=== PATIENT | female | born 1930 | race Caucasian/White ===

== ENCOUNTER 2018-08-06 12:00 | Inpatient (IN) | payer MEDICARE ==
[2018-08-06] VITALS (10 sets, daily range): BP systolic 117–151; BP diastolic 35–90; Ht 162.6 cm; Wt 56.8 kg
[~2018-08-06] VITALS: Ht 162.6 cm; Wt 56.8 kg
--- NOTE | ~2018-08-06 | MORECARE ---
CASE MANAGEMENT DISCHARGE SUMMARY PATIENT: CHATA HOUSTON UNIT: [id number] ADM DATE: 08/06/18 AGE: 88 : [birth year] SEX: F ROOM/BED: D.2234 AUTHOR: TODD,DOC PHYSICIAN: REFERRING PHYSICIAN: NORBERT SORTO MD DATE OF SERVICE: 08/11/18 Discharge Plan Patient Name: CHATA HOUSTON Facility: [facility]:[place] : 1930 Planned Disposition: Anticipated Discharge Date: Discharge Date: 08/10/2018 Expected LOS: 0 Initial Reviewer: [email or web address] Initial Review Date: 08/06/2018 Generated: 08/11/18 1:43 pm Comments DCP- Discharge Planning Updated by [email or web address]: Albina Muller on 08/10/18 11:[address] Received orders for discharge. She states her and daughter are picking her up. States her family are coming from [place], so it will be 4-4:30 before they get here. Declines need for DME or home health services. Discharging home today. DCP- Discharge Planning Updated by [email or web address]: Sandy Kelley on 08/06/18 12:[address] CM met with patient to assess complete initial dc planning assessment. CM educated the patient on the CM role and she gave consent to complete assessment. Patient reports she lives at home with a her . She states she does not want her children to know she is hospitalized. She reports she is independent in her care at home. Reports that she hikes 2 miles/day and lifts weights daily. She plans to return home at discharge. She denied need for home health or other services at discharge. Patient does have a RW, but currently does not use it. CM will continue to follow and will assist as needed with dc plans/needs. Sandy Kelley RN CM DCPIA - Discharge Planning Initial Assessment Updated by [email or web address]: Sandy Kelley on 08/06/18 1:32 pm * Is the patient Alert and Oriented? Yes * PCP Roselyn Tobias * Pharmacy [facility] * Preadmission Environment Home with Family * ADLs Independent * Equipment Rolling Walker * Other Equipment NA * List name and contact numbers for known caregivers / representatives who currently or will assist patient after discharge: Kael Houston #[phone] ([facility]) * Verbal permission to speak to the caregivers and representatives has been obtained from the patient. Yes * Community resources currently utilized None * Please name any agencies selected above. NA * Additional services required to return to the preadmission environment? No * Can the patient safely return to the preadmission environment? Yes * Has this patient been hospitalized within the prior 30 days at any hospital? No Coverage Notice Reviewer: [email or web address] Shahida Muller Notice Issued Date-Time: 08/10/2018 12:56 Notice Type: IM Discharge Notice Notice Delivered To: Patient Relationship to Patient: Self Horse Riding Coach Or Instructor Name: Delivery Method: HAND - Hand Delivered Kaylin Days: Prior Verbal Notification: Recipient Understood Notice: Yes Recipient Signature: Yes Med Rec Note Co-signed by Attending: Coverage Notice Comment: IMM explained, signed, copy given, original placed in MR Last DP export: 08/10/18 12:04 p Patient Name: CHATA HOUSOTN Page [id number] at 1243 All edits/amendments must be made on the electronic document DICTATION DATE: 08/11/18 1243 ASBESTOS ABATEMENT WORKER: MARQUEZ 08/11/18 1243 RPT#: [id number] DC DATE:08/10/18 STATUS: DIS IN [facility] [address] [place] [address] END OF REPORT
--- NOTE | ~2018-08-06 | MORECARE ---
CASE MANAGEMENT DISCHARGE SUMMARY PATIENT: CHATA HOUSTON UNIT: [id number] ADM DATE: 08/06/18 AGE: 88 : [birth year] SEX: F ROOM/BED: D.2234 AUTHOR: TODD,DOC PHYSICIAN: REFERRING PHYSICIAN: NORBERT SORTO MD DATE OF SERVICE: 08/10/18 Discharge Plan Patient Name: CHATA HOUSTON Facility: [facility]:[place] : 1930 Planned Disposition: Anticipated Discharge Date: Discharge Date: Expected LOS: Initial Reviewer: [email or web address] Initial Review Date: 08/06/2018 Generated: 08/10/18 2:04 pm Comments DCP- Discharge Planning Updated by [email or web address]: Albina Muller on 08/10/18 11:[address] Received orders for discharge. She states her and daughter are picking her up. States her family are coming from [place], so it will be 4-4:30 before they get here. Declines need for DME or home health services. Discharging home today. DCP- Discharge Planning Updated by [email or web address]: Sandy Kelley on 08/06/18 12:[address] CM met with patient to assess complete initial dc planning assessment. CM educated the patient on the CM role and she gave consent to complete assessment. Patient reports she lives at home with a her . She states she does not want her children to know she is hospitalized. She reports she is independent in her care at home. Reports that she hikes 2 miles/day and lifts weights daily. She plans to return home at discharge. She denied need for home health or other services at discharge. Patient does have a RW, but currently does not use it. CM will continue to follow and will assist as needed with dc plans/needs. Sandy Kelley RN CM DCPIA - Discharge Planning Initial Assessment Updated by [email or web address]: Sandy Kelley on 08/06/18 1:32 pm * Is the patient Alert and Oriented? Yes * PCP Roselyn Tobias * [facility] * Preadmission Environment Home with Family * ADLs Independent * Equipment Rolling Walker * Other Equipment NA * List name and contact numbers for known caregivers / representatives who currently or will assist patient after discharge: Kael Houston #[phone] ([facility]) * Verbal permission to speak to the caregivers and representatives has been obtained from the patient. Yes * Community resources currently utilized None * Please name any agencies selected above. NA * Additional services required to return to the preadmission environment? No * Can the patient safely return to the preadmission environment? Yes * Has this patient been hospitalized within the prior 30 days at any hospital? No Coverage Notice Reviewer: [email or web address] Shahida Muller Notice Issued Date-Time: 08/10/2018 12:56 Notice Type: IM Discharge Notice Notice Delivered To: Patient Relationship to Patient: Self Manager Meat Name: Delivery Method: HAND - Hand Delivered Kaylin Days: Prior Verbal Notification: Recipient Understood Notice: Yes Recipient Signature: Yes Med Rec Note Co-signed by Attending: Coverage Notice Comment: IMM explained, signed, copy given, original placed in MR Last DP export: 08/06/18 12:35 Patient Name: CHATA HOUSTON Page [id number] at 1304 All edits/amendments must be made on the electronic document DICTATION DATE: 08/10/18 1304 IT COORDINATOR: MARQUEZ 08/10/18 1304 RPT#: [id number] DC DATE: STATUS: ADM IN [facility] [address] [place] [address] END OF REPORT
--- NOTE | ~2018-08-06 | MORECARE ---
CASE MANAGEMENT DISCHARGE SUMMARY PATIENT: CHATA HOUSTON UNIT: [id number] ADM DATE: 08/06/18 AGE: 88 : [birth year] SEX: M ROOM/BED: D.2304 AUTHOR: TODD,DOC PHYSICIAN: REFERRING PHYSICIAN: NORBERT SORTO MD DATE OF SERVICE: 08/06/18 Discharge Plan Patient Name: CHATA HOUSTON Facility: [facility]:[place] : 1930 Planned Disposition: Anticipated Discharge Date: Discharge Date: Expected LOS: Initial Reviewer: [email or web address] Initial Review Date: 08/06/2018 Generated: 08/06/18 2:35 pm Comments DCP- Discharge Planning Updated by [email or web address]: Sandy Kelley on 08/06/18 12:[address] CM met with patient to assess complete initial dc planning assessment. CM educated the patient on the CM role and she gave consent to complete assessment. Patient reports she lives at home with a her . She states she does not want her children to know she is hospitalized. She reports she is independent in her care at home. Reports that she hikes 2 miles/day and lifts weights daily. She plans to return home at discharge. She denied need for home health or other services at discharge. Patient does have a RW, but currently does not use it. CM will continue to follow and will assist as needed with dc plans/needs. Sandy Kelely RN CM DCPIA - Discharge Planning Initial Assessment Updated by [email or web address]: Sandy Kelley on 08/06/18 1:32 pm * Is the patient Alert and Oriented? Yes * PCP Roselyn Tobias * [facility]acy [facility] * Preadmission Environment Home with Family * ADLs Independent * Equipment Rolling Walker * Other Equipment NA * List name and contact numbers for known caregivers / representatives who currently or will assist patient after discharge: Kael Houston #[phone] ([facility]) * Verbal permission to speak to the caregivers and representatives has been obtained from the patient. Yes * Community resources currently utilized None * Please name any agencies selected above. NA * Additional services required to return to the preadmission environment? No * Can the patient safely return to the preadmission environment? Yes * Has this patient been hospitalized within the prior 30 days at any hospital? No Last DP export: 08/06/18 12:26 Patient Name: CHATA HOUSTON Page [id number] at 1335 All edits/amendments must be made on the electronic document DICTATION DATE: 08/06/181334 WATER SOFTENER SERVICER: MARQUEZ 08/06/185 RPT#: [id number] DC DATE: STATUS: ADM IN [facility] [address] [place] [address] END OF REPORT
--- NOTE | ~2018-08-06 | MORECARE ---
CASE MANAGEMENT DISCHARGE SUMMARY PATIENT: CHATA COUGHLIN UNIT: [id number] ADM DATE: 08/06/18 AGE: 88 : [birth year] SEX: M ROOM/BED: D.2304 AUTHOR: JAYLYN BROOSK PHYSICIAN: REFERRING PHYSICIAN: NORBERT SORTO MD DATE OF SERVICE: 08/06/18 Discharge Plan Patient Name: CHATA COUGHLIN Facility: [facility]:[place] : 1930 Planned Disposition: Anticipated Discharge Date: Discharge Date: Expected LOS: Initial Reviewer: [email or web address] Initial Review Date: 08/06/2018 Generated: 08/06/18 2:26 pm Patient Name: CHATA COUGHLIN Page [id number] at 1326 All edits/amendments must be made on the electronic document DICTATION DATE: 08/06/18 1325 BIT TRIPOLER: MARQUEZ 08/06/18 1325 RPT#: [id number] DC DATE: STATUS: ADM IN [facility] [address] [place] [address] END OF REPORT
[2018-08-06] MEDS ORDERED: PLAVIX75 MG (14:39)
[2018-08-06] MEDS ORDERED: BAYER CHEWABLE81 MG PO (14:40)
[2018-08-06] MEDS ORDERED: LOVASTATIN20 MG PO (14:41)
[2018-08-06] MEDS ORDERED: TIMOPTIC 0.5 % O5 ML (14:43)
[2018-08-06 15:57] LABS: HEMATOCRIT 25.2 % (42.0-54.0); HEMOGLOBIN 8.4 g/dL (13.5-17.5)
[2018-08-07] VITALS (24 sets, daily range): BP systolic 111–151; BP diastolic 48–80
[2018-08-07 04:00] LABS: ALBUMIN 2.5 g/dL (3.4-5.0); ALKALINE PHOSPHATASE 55 U/L (46-116); ALT (SGPT) 12 U/L (10-68); BILIRUBIN - TOTAL 0.67 mg/dL (0.2-1.3); CALC OSMOLALITY 278 mosm/kg (275-300); CALCIUM 7.9 mg/dL (8.5-10.1); CARBON DIOXIDE 22.8 mmol/L (21.0-32.0); CHLORIDE - SERUM 106 mmol/L (98-107); CREATININE - SERUM 0.7 mg/dL (0.6-1.3); GLUCOSE 84 mg/dL (74-106); POTASSIUM - SERUM 4.2 mmol/L (3.5-5.1); PROTEIN - SERUM 4.8 g/dL (6.4-8.2); SODIUM 136 mmol/L (136-145); UREA NITROGEN 36 mg/dL (7-18); eGFR NON AFRICAN AMERICAN > 90 mL/min (90-120)
[2018-08-07 04:10] LABS: BASOPHILS 0.4 % (0-2); EOSINOPHILS 1.2 % (0-7); IMMATURE GRANULOCYTES 0.3 % (0-5); LYMPHOCYTES 16.4 % (15-50); MCH 29.5 pg (26.0-34.0); MCV 86.7 fL (80.0-100.0); MEAN PLATELET VOLUME 10.3 fL (7.4-10.4); MONOCYTES 9.2 % (2-11); NEUTROPHILS 72.5 % (40-80); PLATELET COUNT 111 10x3/uL (130-400); RBC 3.53 10x6/uL (4.20-6.10); RDW 15.5 % (11.5-14.5); WBC 7.7 10x3/uL (4.8-10.8)
[2018-08-07 04:12] LABS: HEMATOCRIT 30.6 % (42.0-54.0); HEMOGLOBIN 10.4 g/dL (13.5-17.5)
[2018-08-07 09:39] LABS: HEMATOCRIT 30.8 % (36.0-48.0); HEMOGLOBIN 10.4 g/dL (12-16)
[2018-08-07 13:59] LABS: HEMATOCRIT 29.8 % (36.0-48.0); HEMOGLOBIN 10.2 g/dL (12-16)
[2018-08-07 19:24] LABS: HEMATOCRIT 29.9 % (36.0-48.0); HEMOGLOBIN 10.3 g/dL (12-16)
[2018-08-08] VITALS (18 sets, daily range): BP systolic 126–157; BP diastolic 49–82
[2018-08-08 04:31] LABS: BASOPHILS 0.4 % (0-2); EOSINOPHILS 3.6 % (0-7); HEMATOCRIT 28.5 % (36.0-48.0); IMMATURE GRANULOCYTES 0.2 % (0-5); LYMPHOCYTES 16.1 % (15-50); MCH 30.6 pg (26.0-34.0); MCHC 35.1 g/dL (31.0-37.0); MCV 87.2 fL (80.0-100.0); MEAN PLATELET VOLUME 9.8 fL (7.4-10.4); MONOCYTES 10.7 % (2-11); PLATELET COUNT 107 10x3/uL (130-400); RBC 3.27 10x6/uL (4.00-5.40); RDW 15.6 % (11.5-14.5); WBC 5.4 10x3/uL (4.8-10.8)
[2018-08-08 04:51] LABS: ALBUMIN 2.6 g/dL (3.4-5.0); ALKALINE PHOSPHATASE 54 U/L (46-116); ALT (SGPT) 11 U/L (10-68); BILIRUBIN - TOTAL 0.58 mg/dL (0.2-1.3); CALC OSMOLALITY 276 mosm/kg (275-300); CALCIUM 7.8 mg/dL (8.5-10.1); CARBON DIOXIDE 17.7 mmol/L (21.0-32.0); CHLORIDE - SERUM 105 mmol/L (98-107); CREATININE - SERUM 0.7 mg/dL (0.6-1.3); PROTEIN - SERUM 4.9 g/dL (6.4-8.2); SODIUM 137 mmol/L (136-145); UREA NITROGEN 27 mg/dL (7-18); eGFR NON AFRICAN AMERICAN 83 mL/min (90-120)
[2018-08-08 04:52] LABS: GLUCOSE 65 mg/dL (74-106)
[2018-08-08 13:54] LABS: HEMATOCRIT 29.9 % (36.0-48.0); HEMOGLOBIN 10.4 g/dL (12-16)
[2018-08-08 21:45] LABS: HEMATOCRIT 28.9 % (36.0-48.0); HEMOGLOBIN 9.8 g/dL (12-16)
[2018-08-09 05:01] VITALS: BP 133/46
[2018-08-09 05:22] LABS: HEMATOCRIT 28.7 % (36.0-48.0); HEMOGLOBIN 9.9 g/dL (12-16)
[2018-08-09 12:17] VITALS: BP 107/61
[2018-08-09 16:00] VITALS: BP 152/52
[2018-08-09 21:03] VITALS: BP 159/59
[2018-08-10 00:52] VITALS: BP 151/63
[2018-08-10 05:57] VITALS: BP 150/61
[2018-08-10 06:17] LABS: BASOPHILS 0.4 % (0-2); HEMATOCRIT 30.3 % (36.0-48.0); IMMATURE GRANULOCYTES 0.2 % (0-5); LYMPHOCYTES 20.3 % (15-50); MCH 29.8 pg (26.0-34.0); MEAN PLATELET VOLUME 10.1 fL (7.4-10.4); MONOCYTES 13.1 % (2-11); RBC 3.36 10x6/uL (4.00-5.40); RDW 15.6 % (11.5-14.5); WBC 4.7 10x3/uL (4.8-10.8)
[2018-08-10 06:27] LABS: MCV 90.2 fL (80.0-100.0); PLATELET COUNT 150 10x3/uL (130-400)
[2018-08-10 06:48] LABS: CALC OSMOLALITY 279 mosm/kg (275-300); CALCIUM 7.8 mg/dL (8.5-10.1); CARBON DIOXIDE 26.7 mmol/L (21.0-32.0); CHLORIDE - SERUM 107 mmol/L (98-107); CREATININE - SERUM 0.7 mg/dL (0.6-1.3); GLUCOSE 84 mg/dL (74-106); POTASSIUM - SERUM 3.6 mmol/L (3.5-5.1); SODIUM 142 mmol/L (136-145); UREA NITROGEN 8 mg/dL (7-18); eGFR NON AFRICAN AMERICAN 83 mL/min (90-120)
[2018-08-10 08:20] VITALS: BP 149/46
[2018-08-10] MEDS ORDERED: PROTONIX40 MG PO (12:08)
[2018-08-10 12:25] VITALS: BP 137/74
== END 2018-08-10 15:32 | disposition home or self-care (01) | DRG 378 ==
LOC: D.ER 12:00 → D.ICU 12:46 → D.MS 12:46 → EDSEX 12:46 → D.MS 08-08 17:13
PROVIDERS: Family Medicine; Internal Medicine Gastroenterology
PROC: 0DB68ZX Excision of Stomach, Via Natural or Artificial Opening Endoscopic, Diagnostic (ICD-10-PCS; 2018-08-07)
PROC: 0DB98ZX Excision of Duodenum, Via Natural or Artificial Opening Endoscopic, Diagnostic (ICD-10-PCS; principal; 2018-08-07 11:32)
PROC: 0DJD8ZZ Inspection of Lower Intestinal Tract, Via Natural or Artificial Opening Endoscopic (ICD-10-PCS; 2018-08-09)
DX: K57.31 Diverticulosis of large intestine without perforation or abscess with bleeding (principal); D62 Acute posthemorrhagic anemia; E44.0 Moderate protein-calorie malnutrition; Z68.21 Body mass index [BMI] 21.0-21.9, adult; K44.9 Diaphragmatic hernia without obstruction or gangrene; K29.70 Gastritis, unspecified, without bleeding; G70.00 Myasthenia gravis without (acute) exacerbation; K21.9 Gastro-esophageal reflux disease without esophagitis